=== PATIENT | male | born 1950 | race Caucasian/White ===

== ENCOUNTER 2018-06-14 08:01 | Day surgery (SDC) | payer MEDICAID, OTHER ==
[2018-06-14] VITALS (7 sets, daily range): BP systolic 147–167; BP diastolic 74–87; PULSE 67–70; RESP 16–20; Ht 182.9 cm; Wt 100.4 kg
[~2018-06-14] VITALS: Ht 182.9 cm; Wt 100.4 kg
[~2018-06-14 08:01] MED LIST: AMLO2.5T78 PO; ASPI81TA52 PO; EMPA25TA PO; ERGO2000 PO; FER325 PO; GABA300C16 PO; GLIM4TAB PO; LANT3I SC; LEVO112T57 PO; METF100010 PO; METO-429 PO; PRAV20TA63 PO; TAMS-14 PO
[2018-06-14] MEDS ORDERED: LANT3I SC (08:54)
[2018-06-14] MEDS ORDERED: DOCU100T PO (08:55)
[2018-06-14] MEDS ORDERED: MULTI PO (08:55)
[2018-06-14] MEDS ORDERED: VANCOMYCIN 1 GM (PMX) 250 ML IVPB SCH (08:58)
[2018-06-14] MEDS ORDERED: SOD CHLORIDE 0.9% 1,000 ML IV SCH (09:30)
--- NOTE | 2018-06-14 11:07 | HPN ---
Date/Time of Note Date/Time of Note DATE: 06/14/18 TIME: 11:07 Interval H&P Admission Note Pt. seen H&P reviewed: No system changes IRVING SCOTT June 14, 2018 11:07
[2018-06-14] MEDS ORDERED: IOHEXOL 300MG/ML 30 ML BTL ONE (11:34)
--- NOTE | 2018-06-14 11:36 | PREAC ---
Date/Time of Note Date/Time of Note DATE: 06/14/18 TIME: 11:35 Anesthesia Eval and Record Evaluation Time Pre-Procedure Interview DATE: 06/14/18 TIME: 11:35 Age 68 Sex male NPO: 8 hrs Preoperative diagnosis uretral stricture Planned procedure cystoscopy Past Medical History Past Medical History: Includes Cardio: HTN Endo: Diabetes, Hypothyroid Pulm: Smoking Hx Surgery & Anesthesia Issues No known issue Meds Anticoagulation: No Beta John within 24 hr: Yes Reported Medications Multivitamins* (Theragran*) 1 Tab Tab, 1 TAB PO DAILY, TAB 06/14/18 Docusate Sodium* (Dok*) 100 Mg Tablet, 100 MG PO BID, #60 CAP 06/14/18 Insulin Glargine* (Lantus*) 100 Unit/Ml Soln, 45 UNIT SC QAM, #1 VIAL 06/14/18 Levothyroxine Sodium* (Levothyroxine Sodium*) 112 Mcg Tablet, 112 MCG PO BEFORE BREAKFAST, #30 TAB 06/13/18 Metformin Hcl* (Metformin Hcl*) 1,000 Mg Tablet, 1000 MG PO WITH BREAKFAST DINNE, #60 TAB 06/13/18 Empagliflozin (Jardiance) 25 Mg Tablet, 25 MG PO DAILY, TAB 06/13/18 Gabapentin* (Gabapentin*) 300 Mg Capsule, 300 MG PO BID, #60 CAP 06/13/18 Tamsulosin Hcl* (Flomax*) 0.4 Mg Cap.er.24h, 0.4 MG PO DAILY, CAP 06/13/18 Amlodipine Besylate* (Amlodipine Besylate*) 2.5 Mg Tablet, 2.5 MG PO DAILY, #30 TAB 06/13/18 Aspirin (Low Dose Aspirin) 81 Mg Tablet.dr, 81 MG PO DAILY, #30 TAB 06/13/18 Ergocalciferol (Vitamin D2) (VITAMIN D2) 2,000 Unit Tablet, 2000 UNIT PO DAILY, TAB 06/13/18 Ferrous Sulfate* (Ferrous Sulfate*) 325 Mg Tabec, 325 MG PO DAILY, TAB 06/13/18 Metoprolol Tartrate* (Lopressor*) 50 Mg Tab, 50 MG PO BID, #60 TAB 06/13/18 Pravastatin Sodium* (Pravastatin Sodium*) 20 Mg Tablet, 20 MG PO HS, TAB 06/13/18 Glimepiride* (Glimepiride*) 4 Mg Tablet, 4 MG PO WITH BREAKFAST DINNE, TAB 06/13/18 Discontinued Reported Medications Insulin Glargine* (Lantus*) 100 Unit/Ml Soln, 10 UNIT SC BID, #1 VIAL 06/13/18 Current Medications Vancomycin HCl 250 ml @ 125 mls/hr PRE-OP IVPB Last administered on 06/14/18at 09:13; Admin Dose 125 MLS/HR; Start 06/14/18 at 08:58; Stop 06/14/18 at 13:30 Sodium Chloride 1,000 ml @ 0 mls/hr Q0M IV ; Start 06/14/18 at 09:30 Meds reviewed: Yes Allergies Coded Allergies: No Known Allergy (Unverified , 06/14/18) Allergies Reviewed: Yes Labs/Studies Labs Reviewed: Reviewed by anesthesiologist test: N/A Pre-procedure Exam Last vitals Vital Signs Date Temp Pulse Resp B/P (MAP) Pulse Ox O2 O2 Flow FiO2 Time Delivery Rate 06/14/18 70 149/74 08:45 (99) 06/14/18 96.4 20 97 Room Air 08:05 Airway: Adequate mouth opening, Adequate thyromental dist Mallampati: Mallampati IV Teeth: Normal Lung: Normal Heart: Normal ASA Physical Status ASA physical status: 3 Emergency: None Pre-operative Attestations Prior to commencing anesthesia and surgery, the patient was re-evaluated, there was verification of: *The patient's identity *The results of appropriate recent lab work and preoperative vital signs *The above evaluation not changing prior to induction *Anesthetic plan, risk benefits, alternative and complications discussed with patient/family; questions answered; patient/family understands, accepts and wishes to proceed. CHRISTI ROTH DO June 14, 2018 11:36
[2018-06-14] MEDS ORDERED: HYDROmorphONE 1 MG/5 ML IV SYRINGE IV PRN ×3 (12:00)
[2018-06-14] MEDS ORDERED: CIPRO 400 MG/200 ML D5W IVPB ONE (12:00)
[2018-06-14] MEDS ORDERED: VANCOMYCIN 1 GM/250 ML BAG ONE (12:00)
[2018-06-14] MEDS ORDERED: hydrALAzine 20 MG INJ IV PRN (12:00)
[2018-06-14] MEDS ORDERED: OXYCODONE/ACETAMINOPHEN (5/325) TAB PO PRN (12:00)
[2018-06-14] MEDS ORDERED: LABETALOL HCL 20MG INJ IV PRN (12:00)
[2018-06-14] MEDS ORDERED: SEVOFLURANE 15 MIN ONE (12:00)
[2018-06-14] MEDS ORDERED: MEPERIDINE 25 MG INJ IV PRN (12:00)
[2018-06-14] MEDS ORDERED: LIDOCAINE 2% (SDV) 5 ML INJ ONE (12:00)
[2018-06-14] MEDS ORDERED: PROPOFOL 20 ML ONE (12:00)
[2018-06-14] MEDS ORDERED: ONDANSETRON 4 MG INJ IV PRN (12:00)
[2018-06-14] MEDS ORDERED: FENTAnyl 50 MCG/ML VIAL ONE (12:12)
[2018-06-14] MEDS ORDERED: ONDANSETRON 4 MG INJ ONE (12:13)
--- NOTE | 2018-06-14 12:53 | PAC ---
Date/Time of Note Date/Time of Note DATE: 06/14/18 TIME: 12:52 Post-Anesthesia Notes Post-Anesthesia Note Last documented vital signs Vital Signs Date Temp Pulse Resp B/P (MAP) Pulse Ox O2 O2 Flow FiO2 Time Delivery Rate 06/14/18 98 72 18 156/87 100 1253 06/14/18 96.4 20 97 Room Air 08:05 Activity: WNL Respiratory function: WNL Cardiovascular function: WNL Mental status: Baseline Pain reasonably controlled: Yes Hydration appropriate: Yes Nausea/Vomiting absent: Yes CHRISTI ROTH DO June 14, 2018 12:53
--- NOTE | 2018-06-14 13:08 | PDOCDIS ---
Discharge Instructions DIAGNOSIS Discharge Diagnosis Urethral stricture CONDITION Conor Patient Condition: Clarence Good ACTIVITY: Ghexz2El Activity Restrictions: Clarence Slowly Increase Activity Conor Bathing Restrictions: Clarence Shower FOLLOW UP/APPOINTMENTS Follow-up Plan Follow up in office next week for removal of Tadeo, Call for date and time REFERRALS Conor Referring Provider: IRVING Pritchard OTHER ORDERS: Other Orders: Tadeo to leg bag IRVING SCOTT June 14, 2018 13:08
--- NOTE | 2018-06-14 13:11 | OPR ---
Date/Time of Note Date/Time of Note DATE: 06/14/18 TIME: 13:09 Operative Report Procedure Date: June 14, 2018 Preoperative Diagnosis Urethral stricture Postoperative Diagnosis same Operation/Procedure Performed cysto, RUG, OIU, urethral dilation Surgeon Jose Carlos Stunt Man none Anesthesia Type: general Estimated Blood Loss: none Transfusion none Specimen n one Grafts/Implants none Tubes/Drains 16 f y[place]ut[place] catheter Complications none Pt Condition Post Procedure: stable Disposition: PACU Indications stricture Procedure Description dict [id number] IRVING SCOTT June 14, 2018 13:11
--- NOTE | 2018-06-14 14:36 | OPR ---
DATE OF OPERATION: 06/14/2018 PREOPERATIVE DIAGNOSIS: Urethral stricture. POSTOPERATIVE DIAGNOSIS: Urethral stricture. OPERATIONS PERFORMED: Cystoscopy, retrograde urethrogram, optical internal urethrotomy, urethral dil atation, insertion of Tadeo catheter. SURGEON: Irving Branch MD ANESTHESIA: General. COMPLICATIONS: None. FINDINGS: Urethral stricture. DRAINS: A 16-Filipino Councill catheter. DESCRIPTION OF PROCEDURE: The patient was brought into the operating room and placed on the operatin g room table in supine lithotomy position. He was prepped and draped in the usual fashion after anes thesia was induced. A timeout was undertaken and pressure points were padded. He received preoperat kyara antibiotic therapy and sequential compression devices. A KUB was obtained which demonstrated a n ormal bowel gas pattern and normal bony structures. Rigid cystoscopy was undertaken with a 0-degree angle lens. The rigid cystoscope was easily inserted into the urethra and in the midportion of the p endulous portion of the urethra, a dense urethral stricture was identified with a pinpoint opening wh ich did not allow for passage of the rigid cystoscope. A 5-Filipino open-ended catheter was negotiated through this area, but appeared that there was obstruction in the posterior urethra. Retrograde ure throgram was undertaken which demonstrated a urethral stricture as well as an open prostatic fossa. The 5-Filipino open-ended catheter was not able to be passed into the bladder. A small amount of contr ast was instilled into the bladder and attempt for a wire to be placed into the bladder was unsuccess ful and thus under direct vision, an optical internal urethrotomy was undertaken at the 6 o'clock pos ition. A superficial incision was created into the stricture at the 6 o'clock position which then al lowed for gentle manipulation of the rigid cystoscope to go proximal to this region. This was noted to be distal to the external sphincteric mechanism. The rigid cystoscope was easily passed through t he prostatic fossa and then into the bladder. The bladder was inspected in a systematic fashion and was noted to be markedly dilated and trabeculated. A wire was placed into the urethra and subsequent ly the scope was removed. It appears that there is adequate dilatation of the urethral stricture by the rigid cystoscope overlying the wire. A 16-Filipino Councill catheter was inserted. The efflux was noted to be clear. This was left to gravity drainage. He tolerated the procedure well and was truong sferred to recovery room in stable condition. PLAN: We will be discharged to home on [place] one tab p.o. q.6h. p.r.n., dispense #25, no refil l. Follow up in the office next week for a trial of void. Further intervention evaluation pending clini princess course and results of above. Dictated By: IRVING RANDALL/TARA Conf#: [id number] DID#: [id number]
== END 2018-06-14 16:00 | disposition home or self-care (01) ==
LOC: SDS 08:01
PROVIDERS: ATTEND Urology
DX: N35.919 Unspecified urethral stricture, male, unspecified site (principal); I12.9 Hypertensive chronic kidney disease with stage 1 through stage 4 chronic kidney disease, or unspecified chronic kidney disease; E11.22 Type 2 diabetes mellitus with diabetic chronic kidney disease; N18.3 Chronic kidney disease, stage 3 (moderate); E78.5 Hyperlipidemia, unspecified; I25.2 Old myocardial infarction; B19.20 Unspecified viral hepatitis C without hepatic coma; Z87.891 Personal history of nicotine dependence; Z79.82 Long term (current) use of aspirin; N40.1 Benign prostatic hyperplasia with lower urinary tract symptoms; R33.8 Other retention of urine
CPT/HCPCS: 52282; 74430; 82962; J2405; J3010; Q9967; J0744; J3370

== ENCOUNTER 2018-06-18 14:20 | Emergency (ER) | payer OTHER ==
[~2018-06-18] VITALS: Ht 188 cm; Wt 102.4 kg
[~2018-06-18 14:20] MED LIST changes: +DOCU100T PO; +MULTI PO
[2018-06-18 14:34] VITALS: Ht 188 cm; Wt 102.4 kg
--- NOTE | 2018-06-18 17:19 | ERD ---
ER Documentation Chief Complaint Chief Complaint urine cath leaking, placed on HPI Patient is a 68-year-old male with past medical history of DM type II, hypothyroidism, hyperlipidemia, urethral stricture, presents the ER for concerns of Donovan catheter problem. 3 days ago patient had Donovan catheter placed after having urethral stricture surgery. Patient states he noticed that this morning there was some leakage at his catheter site as well as his urine donovan bag was empty. Patient states throughout the day he is noticed that he has had increased suprapubic pressure. Patient denies any fevers or chills. Patient denies any nausea or vomiting.. Patient presents to the ER concerned that his Donovan catheter is leaking and possibly dislodged. Patient states he has an appointment with Dr. Scott to have his catheter removed in 2 days. ROS All systems reviewed and are negative except as per history of present illness. Medications Home Meds Reported Medications Multivitamins* (Theragran*) 1 Tab Tab, 1 TAB PO DAILY, TAB 06/14/18 Docusate Sodium* (Dok*) 100 Mg Tablet, 100 MG PO BID, #60 CAP 06/14/18 Insulin Glargine* (Lantus*) 100 Unit/Ml Soln, 45 UNIT SC QAM, #1 VIAL 06/14/18 Levothyroxine Sodium* (Levothyroxine Sodium*) 112 Mcg Tablet, 112 MCG PO BEFORE BREAKFAST, #30 TAB 06/13/18 Metformin Hcl* (Metformin Hcl*) 1,000 Mg Tablet, 1000 MG PO WITH BREAKFAST DINNE, #60 TAB 06/13/18 Empagliflozin (Jardiance) 25 Mg Tablet, 25 MG PO DAILY, TAB 06/13/18 Gabapentin* (Gabapentin*) 300 Mg Capsule, 300 MG PO BID, #60 CAP 06/13/18 Tamsulosin Hcl* (Flomax*) 0.4 Mg Cap.er.24h, 0.4 MG PO DAILY, CAP 06/13/18 Amlodipine Besylate* (Amlodipine Besylate*) 2.5 Mg Tablet, 2.5 MG PO DAILY, #30 TAB 06/13/18 Aspirin (Low Dose Aspirin) 81 Mg Tablet.dr, 81 MG PO DAILY, #30 TAB 06/13/18 Ergocalciferol (Vitamin D2) (VITAMIN D2) 2,000 Unit Tablet, 2000 UNIT PO DAILY, TAB 06/13/18 Ferrous Sulfate* (Ferrous Sulfate*) 325 Mg Tabec, 325 MG PO DAILY, TAB 06/13/18 Metoprolol Tartrate* (Lopressor*) 50 Mg Tab, 50 MG PO BID, #60 TAB 06/13/18 Pravastatin Sodium* (Pravastatin Sodium*) 20 Mg Tablet, 20 MG PO HS, TAB 06/13/18 Glimepiride* (Glimepiride*) 4 Mg Tablet, 4 MG PO WITH BREAKFAST DINNE, TAB 06/13/18 Discontinued Reported Medications Insulin Glargine* (Lantus*) 100 Unit/Ml Soln, 10 UNIT SC BID, #1 VIAL 06/13/18 Allergies Allergies: Coded Allergies: No Known Allergy (Unverified , 06/14/18) PMhx/Soc History of Surgery: Yes (Bladder/urethra) Anesthesia Reaction: No Hx Neurological Disorder: No Hx Respiratory Disorders: No Hx Cardiac Disorders: Yes (HTN, HIGH CHOLESTEROL) Hx Psychiatric Problems: No Hx Miscellaneous Medical Probl: No Hx Alcohol Use: No Hx Substance Use: No Hx Tobacco Use: Yes Smoking Status: Current some day smoker FmHx Family History: No diabetes Physical Exam Vitals Vital Signs Date Temp Pulse Resp B/P (MAP) Pulse Ox O2 O2 Flow FiO2 Time Delivery Rate 06/18/18 76 154/88 17:29 (110) 06/18/18 97.2 63 18 168/90 97 14:34 (116) Physical Exam GENERAL: Well-developed, well-nourished male. Appears in no acute distress. HEAD: Normocephalic, atraumatic. EYES: Pupils are equally reactive bilaterally. EOMs grossly intact. No conjunctival erythema. ENT: Moist mucous membranes. No uvula deviation. No kissing tonsils. ABDOMEN: Tender to palpation of the suprapubic region. No rebound or guarding. EXTREMITIES: Equal pulses bilaterally. No peripheral clubbing, cyanosis or edema. No unilateral leg swelling. NEUROLOGIC: Alert and oriented. Moving all four extremities without any difficulty. Normal speech. Steady gait. SKIN: Normal color. Warm and dry. No rashes or lesions. Results 24 hrs Laboratory Tests Test 06/18/18 17:16 Bedside Urine pH (LAB) 5.5 Bedside Urine Protein (LAB) 2+ Bedside Urine Glucose (UA) 0.50% Bedside Urine Ketones (LAB) Negative Bedside Urine Blood 3+ Bedside Urine Nitrite (LAB) Negative Bedside Urine Leukocyte Esterase (L Trace Procedures/MDM MEDICAL DECISION MAKING: Patient is a 68-year-old male who presents the ER for concerns of Donovan catheter. Patient has Donovan catheter in place after having urethral stricture surgery last week. Patient is scheduled to follow-up with his urologist in 2 days. Vital signs were reviewed. Patient is afebrile. Patient was not hypoxic. ED nursing staff assisted patient with Donovan catheter removal and replacement. Per nursing staff, patient had 1600 cc of urine output. Patient's suprapubic comfort was resolved once urinary retention was resolved. Urine dip showed trace leukocyte esterase. Will defer treatment at this time as patient does not have any UTI symptoms. Urine will be sent for culture. Patient was advised to follow-up with his urologist Dr. Scott as scheduled for later this week. Patiestefani t was nontoxic, non-ill appearing prior to discharge. DISCHARGE: At this time, patient is stable for discharge and outpatient management. I have instructed the patient to follow-up with his/her primary care physician in 1-2 days. I have discussed with the patient the possibility of needing to see a specialist for further workup and imaging studies if symptoms persist. I have instructed the patient to promptly return to the ER for any new or worsening symptoms including increased pain, fever, nausea, vomiting, weakness or LOC. The patient and/or family expressed understanding of and agreement with this plan. All questions were answered. Home care instructions were provided. Disclaimer: Inadvertent spelling and grammatical errors are likely due to EHR/dictation software use and do not reflect on the overall quality of patient care. Also, please note that the electronic time recorded on this note does not necessarily reflect the actual time of the patient encounter. Departure Diagnosis: Primary Impression: Complication of catheter Encounter type: initial encounter Qualified Codes: T85.9XXA - Unspecified complication of internal prosthetic device, implant and graft, initial encounter Condition: Fair Patient Instructions: Emptying and Cleaning Your Urinary Catheter Bag Referrals: IRVING SCOTT [facility] YOU HAVE RECEIVED A MEDICAL SCREENING EXAM AND THE RESULTS INDICATE THAT YOU DO NOT HAVE A CONDITION THAT REQUIRES URGENT TREATMENT IN THE EMERGENCY DEPARTMENT. FURTHER EVALUATION AND TREATMENT OF YOUR CONDITION CAN WAIT UNTIL YOU ARE SEEN IN YOUR DOCTORS OFFICE WITHIN THE NEXT 1-2 DAYS. IT IS YOUR RESPONSIBILITY TO MAKE AN APPOINTMENT FOR FOLOW-UP CARE. IF YOU HAVE A PRIMARY DOCTOR --you should call your primary doctor and schedule an appointment IF YOU DO NOT HAVE A PRIMARY DOCTOR YOU CAN CALL OUR PHYSICIAN REFERRAL HOTLINE AT IF YOU CAN NOT AFFORD TO SEE A PHYSICIAN YOU CAN CHOSE FROM THE FOLLOWING [facility] [address] [facility] [address] [facility] [address] [facility] [address] [facility] [address] [facility]. [facility] [address] [facility]. [facility] YOU HAVE RECEIVED A MEDICAL SCREENING EXAM AND THE RESULTS INDICATE THAT YOU DO NOT HAVE A CONDITION THAT REQUIRES URGENT TREATMENT IN THE EMERGENCY DEPARTMENT. FURTHER EVALUATION AND TREATMENT OF YOUR CONDITION CAN WAIT UNTIL YOU ARE SEEN IN YOUR DOCTORS OFFICE WITHIN THE NEXT 1-2 DAYS. IT IS YOUR RESPONSIBILITY TO MAKE AN APPOINTMENT FOR FOLOW-UP CARE. IF YOU HAVE A PRIMARY DOCTOR --you should call your primary doctor and schedule and appointment IF YOU DO NOT HAVE A PRIMARY DOCTOR YOU CAN CALL OUR PHYSICIAN REFERRAL HOTLINE AT . IF YOU CAN NOT AFFORD TO SEE A PHYSICIAN YOU CAN CHOSE FROM THE FOLLOWING [facility]: [facility] [address] [place] [address] [facility] [address] [place] [address] [facility] [address] [place] [address] Additional Instructions: Follow-up with Dr. Scott as scheduled for on Tuesday. FRAN CALDWELL PA-C June 18, 2018 17:19
[2018-06-18 17:29] VITALS: BP 154/88; PULSE 76
== END 2018-06-18 17:30 | disposition home or self-care (01) ==
LOC: FTE 14:20
DX: T85.9XXA Unspecified complication of internal prosthetic device, implant and graft, initial encounter (principal); E11.9 Type 2 diabetes mellitus without complications; E03.9 Hypothyroidism, unspecified; R34 Anuria and oliguria; Y73.2 Prosthetic and other implants, materials and accessory gastroenterology and urology devices associated with adverse incidents; Z79.4 Long term (current) use of insulin; Z79.82 Long term (current) use of aspirin
CPT/HCPCS: 81003; 87086